=== PATIENT | male | born 1945 | race Caucasian/White ===

== ENCOUNTER 2016-05-04 09:58 | Outpatient (CLI) | payer MEDICARE, OTHER | END 2016-05-04 09:59 | disposition home or self-care (01) | DX: E11.9 Type 2 diabetes mellitus without complications (principal); I10 Essential (primary) hypertension; I25.10 Atherosclerotic heart disease of native coronary artery without angina pectoris ==

== ENCOUNTER 2016-08-04 08:46 | Outpatient (CLI) | payer MEDICARE, OTHER ==
[2016-08-04 13:25] LABS: HEMOGLOBIN A1C 0.94 g/dL
[2016-08-04 13:46] LABS: ALBUMIN/GLOBULIN RATIO 1.6 (1.0-2.2); BILIRUBIN,TOTAL 0.8 mg/dL (0.2-1.0); BUN - BLOOD UREA NITROGEN 38 mg/dL (6-20); CALCIUM 9.5 mg/dL (8.5-10.3); CARBON DIOXIDE - CO2 28 mmol/L (21-32); CHLORIDE 102 mmol/L (101-111); CHOL/HDL RATIO 3.6 (<5.0); CHOLESTEROL 107 mg/dL; CREATININE 1.3 mg/dL (0.6-1.2); GFR - MDRD 54 (>89); GLUCOSE 125 mg/dL (70-100); HDL CHOLESTEROL 30 mg/dL; POTASSIUM 4.7 mmol/L (3.5-5.0); SODIUM 140 mmol/L (135-145); TOTAL PROTEIN 7.1 g/dL (6.7-8.2); TRIGLYCERIDES 87 mg/dL; VLDL CHOLESTEROL 17 mg/dL
== END 2016-08-04 08:47 | disposition home or self-care (01) ==
LOC: LAB.WCP 08:46
PROVIDERS: ATTEND Family Medicine
DX: I10 Essential (primary) hypertension (principal)
CPT/HCPCS: 36415; 80053; 80061; 82043; 83036

== ENCOUNTER 2016-11-03 08:00 | Outpatient (CLI) | payer MEDICARE, OTHER ==
[2016-11-03 13:34] LABS: HEMOGLOBIN A1C 0.91 g/dL
[2016-11-03 13:41] LABS: ALBUMIN/GLOBULIN RATIO 1.6 (1.0-2.2); BILIRUBIN,TOTAL 0.3 mg/dL (0.2-1.0); BUN - BLOOD UREA NITROGEN 31 mg/dL (6-20); CALCIUM 9.1 mg/dL (8.5-10.3); CARBON DIOXIDE - CO2 27 mmol/L (21-32); CHLORIDE 108 mmol/L (101-111); CHOL/HDL RATIO 3.4 (<5.0); CHOLESTEROL 106 mg/dL; CREATININE 1.3 mg/dL (0.6-1.2); GFR - MDRD 54 (>89); GLUCOSE 106 mg/dL (70-100); HDL CHOLESTEROL 31 mg/dL; LDL/HDL RATIO 1.8 (<3.6); POTASSIUM 4.4 mmol/L (3.5-5.0); SODIUM 139 mmol/L (135-145); TRIGLYCERIDES 94 mg/dL; VLDL CHOLESTEROL 19 mg/dL
== END 2016-11-03 08:01 | disposition home or self-care (01) ==
LOC: LAB.WCP 08:00
PROVIDERS: ATTEND Family Medicine
DX: I10 Essential (primary) hypertension (principal); E11.9 Type 2 diabetes mellitus without complications; I25.10 Atherosclerotic heart disease of native coronary artery without angina pectoris; E78.5 Hyperlipidemia, unspecified; Z79.899 Other long term (current) drug therapy
CPT/HCPCS: 36415; 80053; 80061; 83036

== ENCOUNTER 2017-03-04 08:00 | Outpatient (CLI) | payer MEDICARE, OTHER ==
[2017-03-04 13:40] LABS: HB2 TOTAL 15.4 g/dL; HEMOGLOBIN A1C 0.86 g/dL; HEMOGLOBIN A1C % 7.3 % (4.6-6.2)
[2017-03-04 14:13] LABS: ALBUMIN 4.3 g/dL (3.2-5.5); ALBUMIN/GLOBULIN RATIO 1.6 (1.0-2.2); BILIRUBIN,TOTAL 0.4 mg/dL (0.2-1.0); CREATININE 1.1 mg/dL (0.6-1.2)
== END 2017-03-04 08:01 | disposition home or self-care (01) ==
LOC: LAB.WCP 08:00
PROVIDERS: ATTEND Family Medicine
DX: M54.5 Low back pain (principal); E11.9 Type 2 diabetes mellitus without complications; I25.10 Atherosclerotic heart disease of native coronary artery without angina pectoris
CPT/HCPCS: 36415; 80053; 83036

== ENCOUNTER 2017-04-08 07:45 | Day surgery (SDC) | payer MEDICARE, OTHER ==
[2017-04-08] MEDS ORDERED: LACTATED RINGERS 1,000 ML IV ONE (08:26)
[2017-04-08] MEDS ORDERED: fentaNYL 100 MCG/2 ML VIAL IVP ONE (09:26)
[2017-04-08] MEDS ORDERED: MIDAZOLAM 2 MG/2 ML VIAL IVP ONE (09:26)
[2017-04-08 11:00] VITALS: BP 132/78
== END 2017-04-08 07:46 | disposition home or self-care (01) ==
LOC: SDS 07:45
PROVIDERS: ATTEND Surgery
PROC: 0DBH8ZX Excision of Cecum, Via Natural or Artificial Opening Endoscopic, Diagnostic (ICD-10-PCS; 2017-04-08)
PROC: 0DBH8ZZ Excision of Cecum, Via Natural or Artificial Opening Endoscopic (ICD-10-PCS; 2017-04-08)
PROC: 0DBN8ZZ Excision of Sigmoid Colon, Via Natural or Artificial Opening Endoscopic (ICD-10-PCS; 2017-04-08)
PROC: 0DBP8ZZ Excision of Rectum, Via Natural or Artificial Opening Endoscopic (ICD-10-PCS; 2017-04-08)
PROC: 3E0H8GC Introduction of Other Therapeutic Substance into Lower GI, Via Natural or Artificial Opening Endoscopic (ICD-10-PCS; principal; 2017-04-08 09:00)
DX: Z12.11 Encounter for screening for malignant neoplasm of colon (principal); D12.7 Benign neoplasm of rectosigmoid junction; D12.0 Benign neoplasm of cecum; D12.5 Benign neoplasm of sigmoid colon; K62.1 Rectal polyp; K64.8 Other hemorrhoids; Z80.0 Family history of malignant neoplasm of digestive organs; F17.210 Nicotine dependence, cigarettes, uncomplicated; E11.9 Type 2 diabetes mellitus without complications; E78.5 Hyperlipidemia, unspecified; Z95.1 Presence of aortocoronary bypass graft
CPT/HCPCS: 45380; 45381; 45385; J7120

== ENCOUNTER 2017-08-26 08:01 | Outpatient (CLI) | payer MEDICARE, OTHER ==
[2017-08-26 13:19] LABS: CHOL/HDL RATIO 3.3 (<5.0); CHOLESTEROL 120 mg/dL; HDL CHOLESTEROL 36 mg/dL; LDL CHOLESTEROL,CALCULATED 67 mg/dL; LDL/HDL RATIO 1.9 (<3.6); VLDL CHOLESTEROL 17 mg/dL
[2017-08-26 13:22] LABS: HB2 TOTAL 14.5 g/dL; HEMOGLOBIN A1C 0.87 g/dL; HEMOGLOBIN A1C % 7.6 % (4.6-6.2)
== END 2017-08-26 08:02 ==
LOC: LAB.WCP 08:01
PROVIDERS: ATTEND Family Medicine
DX: D12.8 Benign neoplasm of rectum (principal); I10 Essential (primary) hypertension; E11.9 Type 2 diabetes mellitus without complications; I25.10 Atherosclerotic heart disease of native coronary artery without angina pectoris; Z72.0 Tobacco use
CPT/HCPCS: 36415; 80061; 82043; 83036; 83721

== ENCOUNTER 2018-02-07 08:13 | Outpatient (CLI) | payer MEDICARE, OTHER ==
[2018-02-07 13:17] LABS: ALBUMIN 4.2 g/dL (3.2-5.5); ALBUMIN/GLOBULIN RATIO 1.4 (1.0-2.2); ALKALINE PHOSPHATASE 94 IU/L (42-121); ALT ALANINE AMINOTRANSFERASE 22 IU/L (10-60); AST ASPARTATE AMINOTRANSFERASE 21 IU/L (10-42); BILIRUBIN,TOTAL 0.8 mg/dL (0.2-1.0); BUN - BLOOD UREA NITROGEN 37 mg/dL (6-20); CALCIUM 9.1 mg/dL (8.5-10.3); CARBON DIOXIDE - CO2 27 mmol/L (21-32); CHLORIDE 105 mmol/L (101-111); CHOL/HDL RATIO 3.6 (<5.0); CHOLESTEROL 109 mg/dL; CREATININE 1.1 mg/dL (0.6-1.2); GFR - MDRD 66 (>89); GLUCOSE 137 mg/dL (70-100); HDL CHOLESTEROL 30 mg/dL; LDL CHOLESTEROL,CALCULATED 58 mg/dL; LDL/HDL RATIO 1.9 (<3.6); SODIUM 139 mmol/L (135-145); TOTAL PROTEIN 7.1 g/dL (6.7-8.2); VLDL CHOLESTEROL 21 mg/dL
[2018-02-07 13:22] LABS: HB2 TOTAL 13.3 g/dL; HEMOGLOBIN A1C 0.81 g/dL; HEMOGLOBIN A1C % 7.7 % (4.6-6.2)
== END 2018-02-07 23:59 | disposition home or self-care (01) ==
LOC: LAB.WCP 08:13
PROVIDERS: ATTEND Family Medicine
DX: K63.5 Polyp of colon (principal); E11.9 Type 2 diabetes mellitus without complications; F17.210 Nicotine dependence, cigarettes, uncomplicated
CPT/HCPCS: 36415; 80053; 80061; 83036; 83721; 84443

== ENCOUNTER 2018-08-17 09:28 | Outpatient (CLI) | payer MEDICARE, OTHER ==
[2018-08-17 12:52] LABS: BASOPHILS # (AUTO) 0.1 10^3/uL (0.0-0.1); BASOPHILS % (AUTO) 0.8 %; EOSINOPHILS # (AUTO) 0.4 10^3/uL (0.0-0.7); EOSINOPHILS % (AUTO) 5.3 %; HGB - HEMOGLOBIN 14.5 g/dL (14.0-18.0); LYMPHOCYTES # (AUTO) 2.2 10^3/uL (1.5-3.5); LYMPHOCYTES % (AUTO) 29.7 %; MEAN CORPUSCULAR HGB CONC 32.1 g/dL (32.0-36.0); MEAN CORPUSCULAR VOLUME 93.6 fL (80.0-94.0); MEAN PLATELET VOLUME 10.2 fL (7.4-11.4); MONOCYTES # (AUTO) 0.8 10^3/uL (0.0-1.0); MONOCYTES % (AUTO) 10.8 %; NEUTROPHILS # (AUTO) 3.9 10^3/uL (1.5-6.6); PLT - PLATELET COUNT 268 10^3/uL (130-450); RED BLOOD COUNT 4.83 10^6/uL (4.70-6.10); RED CELL DISTRIBUTION WIDTH 12.7 % (12.0-15.0); WHITE BLOOD COUNT 7.4 x10^3/uL (4.8-10.8)
[2018-08-17 13:32] LABS: ALBUMIN 4.3 g/dL (3.2-5.5); ALBUMIN/GLOBULIN RATIO 1.4 (1.0-2.2); ALKALINE PHOSPHATASE 76 IU/L (42-121); ALT ALANINE AMINOTRANSFERASE 24 IU/L (10-60); AST ASPARTATE AMINOTRANSFERASE 21 IU/L (10-42); BILIRUBIN,TOTAL 0.8 mg/dL (0.2-1.0); BUN - BLOOD UREA NITROGEN 30 mg/dL (6-20); CALCIUM 9.3 mg/dL (8.5-10.3); CARBON DIOXIDE - CO2 28 mmol/L (21-32); CHLORIDE 101 mmol/L (101-111); CHOL/HDL RATIO 3.5 (<5.0); CHOLESTEROL 104 mg/dL; CREATININE 1.1 mg/dL (0.6-1.2); GFR - MDRD 65 (>89); GLUCOSE 134 mg/dL (70-100); HDL CHOLESTEROL 30 mg/dL; LDL CHOLESTEROL,CALCULATED 60 mg/dL; SODIUM 139 mmol/L (135-145); TOTAL PROTEIN 7.4 g/dL (6.7-8.2); VLDL CHOLESTEROL 14 mg/dL
== END 2018-08-17 23:59 | disposition home or self-care (01) ==
LOC: LAB.WCP 09:28
PROVIDERS: ATTEND Family Medicine
DX: I10 Essential (primary) hypertension (principal); E11.9 Type 2 diabetes mellitus without complications; I25.10 Atherosclerotic heart disease of native coronary artery without angina pectoris
CPT/HCPCS: 36415; 80053; 80061; 83721; 84443; 85025

== ENCOUNTER 2018-08-26 08:50 | Outpatient (CLI) | payer MEDICARE, OTHER ==
[2018-08-26 12:47] LABS: HB2 TOTAL 15.4 g/dL; HEMOGLOBIN A1C 0.95 g/dL; HEMOGLOBIN A1C % 7.8 % (4.6-6.2)
== END 2018-08-26 23:59 | disposition home or self-care (01) ==
LOC: LAB.WCP 08:50
PROVIDERS: ATTEND Family Medicine
DX: E11.9 Type 2 diabetes mellitus without complications (principal)
CPT/HCPCS: 36415; 83036

== ENCOUNTER 2019-04-18 07:47 | Outpatient (CLI) | payer MEDICARE, OTHER ==
[2019-04-18 12:45] LABS: ALBUMIN/GLOBULIN RATIO 1.4 (1.0-2.2); BILIRUBIN,TOTAL 0.6 mg/dL (0.2-1.0); CALCIUM 8.9 mg/dL (8.5-10.3); CREATININE 1.2 mg/dL (0.6-1.2); TOTAL PROTEIN 6.9 g/dL (6.7-8.2)
[2019-04-18 13:13] LABS: HB2 TOTAL 15.1 g/dL; HEMOGLOBIN A1C 0.88 g/dL; HEMOGLOBIN A1C % 7.5 % (4.6-6.2)
== END 2019-04-18 23:59 | disposition home or self-care (01) ==
LOC: LAB.WCP 07:47
PROVIDERS: ATTEND Family Medicine
DX: I10 Essential (primary) hypertension (principal); E11.9 Type 2 diabetes mellitus without complications
CPT/HCPCS: 36415; 80053; 83036

== ENCOUNTER 2019-04-26 09:04 | Outpatient (CLI) | payer MEDICARE, OTHER ==
[~2019-04-26 09:04] MED LIST: ALBUTEROL NEB 2.5 MG/3 ML INH ONE
== END 2019-04-26 09:05 | disposition home or self-care (01) ==
LOC: RT 09:04
PROVIDERS: ATTEND Family Medicine
DX: J44.9 Chronic obstructive pulmonary disease, unspecified (principal)
CPT/HCPCS: 94060; 94729

== ENCOUNTER 2020-04-23 08:00 | Outpatient (CLI) | payer MEDICARE, OTHER ==
[2020-04-23 12:02] LABS: BASOPHILS # (AUTO) 0.1 10^3/uL (0.0-0.1); EOSINOPHILS # (AUTO) 0.5 10^3/uL (0.0-0.7); EOSINOPHILS % (AUTO) 6.3 %; HCT - HEMATOCRIT 42.5 % (42.0-52.0); LYMPHOCYTES # (AUTO) 2.2 10^3/uL (1.5-3.5); MEAN CORPUSCULAR HEMOGLOBIN 31.3 pg (27.0-31.0); MEAN CORPUSCULAR HGB CONC 32.9 g/dL (32.0-36.0); MEAN CORPUSCULAR VOLUME 95.1 fL (80.0-94.0); MEAN PLATELET VOLUME 10.4 fL (7.4-11.4); MONOCYTES % (AUTO) 12.3 %; NEUTROPHILS # (AUTO) 4.4 10^3/uL (1.5-6.6); PLT - PLATELET COUNT 270 10^3/uL (130-450); RED BLOOD COUNT 4.47 10^6/uL (4.70-6.10); RED CELL DISTRIBUTION WIDTH 12.4 % (12.0-15.0); WHITE BLOOD COUNT 8.2 x10^3/uL (4.8-10.8)
[2020-04-23 12:17] LABS: ESTIMATED AVERAGE GLUCOSE 169 mg/dL (70-100); HEMOGLOBIN A1c% 7.5 % (4.27-6.07)
[2020-04-23 12:18] LABS: MICROALBUM/CREATININE RATIO,UR 504.8 ug/mg (<30.0); MICROALBUMIN,URINE 41.9 mg/dL (0-300.0)
[2020-04-23 12:43] LABS: ALBUMIN 4.1 g/dL (3.2-5.5); ALBUMIN/GLOBULIN RATIO 1.3 (1.0-2.2); ALKALINE PHOSPHATASE 80 IU/L (42-121); ALT ALANINE AMINOTRANSFERASE 25 IU/L (10-60); AST ASPARTATE AMINOTRANSFERASE 22 IU/L (10-42); BILIRUBIN,TOTAL 0.7 mg/dL (0.2-1.0); BUN - BLOOD UREA NITROGEN 26 mg/dL (6-20); CALCIUM 9.4 mg/dL (8.5-10.3); CARBON DIOXIDE - CO2 27 mmol/L (21-32); CHLORIDE 104 mmol/L (101-111); CHOL/HDL RATIO 3.8 (<5.0); CHOLESTEROL 120 mg/dL; CREATININE 1.2 mg/dL (0.6-1.2); GFR - MDRD 59 (>89); GLUCOSE 86 mg/dL (70-100); HDL CHOLESTEROL 32 mg/dL; LDL CHOLESTEROL,CALCULATED 72 mg/dL; LDL/HDL RATIO 2.3 (<3.6); POTASSIUM 4.3 mmol/L (3.5-5.0); SODIUM 141 mmol/L (135-145); TOTAL PROTEIN 7.2 g/dL (6.7-8.2); TRIGLYCERIDES 79 mg/dL; VLDL CHOLESTEROL 16 mg/dL
[2020-04-23 12:49] LABS: THYROID STIMULATING HORMONE 4.83 uIU/mL (0.34-5.60)
== END 2020-04-23 23:59 | disposition home or self-care (01) ==
LOC: LAB.WCP 08:00
PROVIDERS: ATTEND Family Medicine
DX: J44.9 Chronic obstructive pulmonary disease, unspecified (principal); E11.9 Type 2 diabetes mellitus without complications; E78.5 Hyperlipidemia, unspecified; I25.10 Atherosclerotic heart disease of native coronary artery without angina pectoris; I10 Essential (primary) hypertension
CPT/HCPCS: 36415; 80053; 80061; 82043; 82570; 83036; 83721; 84443; 85025

== ENCOUNTER 2020-06-06 08:52 | Outpatient (CLI) | payer MEDICARE, OTHER | END 2020-06-06 08:53 | disposition home or self-care (01) | LOC: DI 08:52 | PROVIDERS: ATTEND Internal Medicine | DX: I51.7 Cardiomegaly (principal); I77.810 Thoracic aortic ectasia | CPT/HCPCS: 93306 ==

== ENCOUNTER 2020-09-19 08:45 | Emergency (ER) | payer MEDICARE, OTHER ==
--- NOTE | 2020-09-19 09:32 | XRAY Report ---
PROCEDURE: Wrist 3 View RT INDICATIONS: pain/swelling TECHNIQUE: 3 views of the wrist were acquired. COMPARISON: None FINDINGS: Bones: No fractures or dislocations. No suspicious bony lesions. 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 Soft tissues: No suspicious soft tissue calcifications. IMPRESSION: No fracture. No acute osseous lesion. If there persistent symptoms or continued clinical concern for pathology, then repeat plain film radiographs (7-10 days) or advanced imaging (CT, MR, bone scan) stephanie uld be considered for further evaluation. Reviewed by: Constance James MD, PhD on 09/19/2020 9:31 AM PDT Approved by: Constance James MD, PhD on 09/19/2020 9:31 AM PDT Station ID: [id number]
--- NOTE | 2020-09-19 09:51 | ED Physician Documentation ---
PD HPI UPPER EXT INJURY - Stated complaint Stated Complaint: R WRIST SWELLING/PX - Chief complaint Chief Complaint: Ext Problem - History obtained from History obtained from: Patient - Additonal information Additional information: Patient comes emergency department chief complaint of right wrist and hand swelling after working on a strenuous project at home for a number of hours 2 days ago. 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 He states he started to notice some soreness over the flexor aspect of his wrist and over the last couple of days, he has had increased pain with some swelling in his hands. Patient states the most helpful thing is to prop his hand up and elevate it. He tried taking couple Tylenol last night and was able to get some sleep. He denies history of carpal tunnel. No previous fracture or other injury to the wrist. He denies hearing any cracking, popping, or snapping during the work he was doing. No oth er complaints at this time. Patient has a history of psoriasis but this has not affected his right hand as far as he knows. He is right-hand dominant. Review of Systems Ten Systems: 10 systems reviewed and negative Constitutional: reports: Reviewed and negative Eyes: reports: Reviewed and negative Ears: reports: Reviewed and negative Nose: reports: Reviewed and negative Throat: reports: Reviewed and negative Cardiac: reports: Reviewed and negative Respiratory: reports: Reviewed and negative GI: reports: Reviewed and negative : reports: Reviewed and negative Skin: reports: Reviewed and negative Musculoskeletal: reports: Joint pain, Joint swelling Neurologic: reports: Reviewed and negative Psychiatric: reports: Reviewed and negative Endocrine: reports: Reviewed and negative Immunocompromised: reports: Reviewed and negative PD PAST MEDICAL HISTORY - Past Medical History Cardiovascular: Hypertension, High cholesterol, Coronary artery disease Endocrine/Autoimmune: Type 2 diabetes - Past Surgical History General: Colonoscopy Cardiovascular: CABG - Present Medications Home Medications: Ambulatory Orders Medication Instructions Recorded Confirmed Ascorbic Acid [Vitamin C] 500 mg PO DAILY 01/24/16 01/24/16 Aspirin [Aspirin EC] 81 mg PO DAILY 01/24/16 01/24/16 Atorvastatin Calcium [Lipitor] 80 mg PO QPM 01/24/16 01/24/16 Cholecalciferol (Vitamin D3) 400 unit PO DAILY 01/24/16 01/24/16 [Vitamin D3] Insulin Glargine,Hum.rec.anlog 20 unit SQ QPM 01/24/16 01/24/16 [Lantus Solostar] Metformin HCl 1,000 mg PO BIDWM 01/24/16 01/24/16 Metoprolol Tartrate 25 mg PO BID 01/24/16 01/24/16 Multivitamin [Multivitamins] 1 each PO DAILY 01/24/16 01/24/16 buPROPion HCL [Bupropion HCl Sr] 150 mg PO DAILY 01/24/16 01/24/16 lisinopriL [Lisinopril] 5 mg PO DAILY 01/24/16 01/24/16 predniSONE [Deltasone] 60 mg PO DAILY 5 Days #15 tablet 09/19/20 - Allergies Allergies/Adverse Reactions: Allergies Allergy/AdvReac Type Severity Reaction Status Date / Time No Known Drug Allergies Allergy Verified 09/19/20 09:12 - Social History Smoking Status: Current every day smoker PD ED PE NORMAL - Vitals Vital signs reviewed: Yes - General General: Alert and oriented X 3, No acute distress - HEENT HEENT: Atraumatic, PERRL, EOMI, Moist mucous membranes - Neck Neck: Supple, no meningeal sign - Cardiac Cardiac: Strong equal pulses - Respiratory Respiratory: No respiratory distress - Derm Derm: Normal color, Warm and dry, No rash - Extremities Extremities: No deformity, Other (Moderate edema right hand. Limited range of motion of finger secondary to swelling. Tenderness over flexor aspect right wrist. No bony deformity or point tenderness. Full range of motion right elbow.) - Neuro Neuro: Alert and oriented X 3 - Psych Psych: Normal mood, Normal affect Results - Vitals Vitals: Vital Signs - 24 hr 09/19/20 09:09 Temperature 36.5 C Oxygen O2 Source Room air - Rads (name of study) Wrist x-ray Radiology: Final report received, EMP read indepedently, See rad report (neg) PD MEDICAL DECISION MAKING - ED course Complexity details: reviewed results, re-evaluated patient, considered differential, d/w patient ED course: I discussed with the patient that I do not find any evidence of a bony injury and that most likely, he is sustained an overuse injury to his tendon sheath. We have discussed the importance and effectiveness of elevation and icing. We have also discussed using anti-inflammatories and prednisone to help with the symptoms. Patient has been given a dose of prednisone here. Given the swelling currently, I do not feel it is likely that splinting will help at this time. We have discussed the need for follow-up. Departure - Departure Disposition: 01 Home, Self Care Clinical Impression: Wrist pain, acute Qualifiers: Laterality: right Qualified Code(s): M25.531 - Pain in right wrist Condition: Stable Instructions: Carpal Tunnel Syndrome Prescriptions: predniSONE [Deltasone] 60 mg PO DAILY 5 Days #15 tablet Comments: Your x-ray looks good. The pain and swelling you are having appears to be a consequence of overuse injury, which is probably the result of the work you did at your house couple days ago. For the most part, this will have to get better on its own, though anti-inflammatories and prednisone should be helpful with this. Please take the prednisone once daily as directed until the swelling goes down or until you have completed the course. You may also take ibuprofen 600 mg every 6 hours as needed for the pain and swelling. Ice and elevation will be the most helpful. Please elevate your hand whenever you are able to help drain the swelling out and improve your comfort level. You may follow-up with your primary care physician as needed.
[2020-09-19] MEDS ORDERED: predniSONE 20 MG TABLET PO STA (09:52)
== END 2020-09-19 10:16 | disposition home or self-care (01) ==
LOC: ED 08:45
DX: M25.531 Pain in right wrist (principal); R22.31 Localized swelling, mass and lump, right upper limb; F17.200 Nicotine dependence, unspecified, uncomplicated
CPT/HCPCS: 73110; 99283; 99284; J7512

== ENCOUNTER 2020-10-01 08:00 | Outpatient (CLI) | payer MEDICARE, OTHER ==
[2020-10-01 12:41] LABS: CREATININE,URINE 83.5 mg/dL; MICROALBUM/CREATININE RATIO,UR 316.2 ug/mg (<30.0); MICROALBUMIN,URINE 26.4 mg/dL (0-300.0)
[2020-10-01 12:47] LABS: CALCIUM 9.7 mg/dL (8.5-10.3); CREATININE 1.3 mg/dL (0.6-1.2); POTASSIUM 5.4 mmol/L (3.5-5.0)
[2020-10-01 13:06] LABS: ESTIMATED AVERAGE GLUCOSE 163 mg/dL (70-100); HEMOGLOBIN A1c% 7.3 % (4.27-6.07)
== END 2020-10-01 23:59 | disposition home or self-care (01) ==
LOC: LAB.WCP 08:00
PROVIDERS: ATTEND Internal Medicine
DX: E11.59 Type 2 diabetes mellitus with other circulatory complications (principal)
CPT/HCPCS: 36415; 80048; 82043; 82570; 83036

== ENCOUNTER 2021-01-29 08:00 | Outpatient (CLI) | payer MEDICARE, OTHER ==
[2021-01-29 13:21] LABS: ESTIMATED AVERAGE GLUCOSE 160 mg/dL (70-100); HEMOGLOBIN A1c% 7.2 % (4.27-6.07)
[2021-01-29 13:25] LABS: CREATININE,URINE 40.2 mg/dL; MICROALBUMIN,URINE 12.3 mg/dL (0-300.0)
[2021-01-29 14:02] LABS: CALCIUM 9.3 mg/dL (8.5-10.3); CREATININE 1.2 mg/dL (0.6-1.2); POTASSIUM 4.5 mmol/L (3.5-5.0)
== END 2021-01-29 23:59 ==
LOC: LAB.WCP 08:00
PROVIDERS: ATTEND Internal Medicine
DX: E11.59 Type 2 diabetes mellitus with other circulatory complications (principal)
CPT/HCPCS: 36415; 80048; 82043; 82570; 83036

== ENCOUNTER 2021-03-25 07:29 | Day surgery (SDC) | payer MEDICARE, OTHER ==
[2021-03-25] MEDS ORDERED: LACTATED RINGERS 1,000 ML IV ONE ×2 (07:32→09:27)
--- NOTE | 2021-03-25 08:40 | ANESTHESIA ---
Pre-Anesthesia VS, & Labs - Diagnosis hx of polyps - Procedure colonoscopy Vital Signs: Temp Pulse Resp BP Pulse Ox 35.9 C L 72 18 129/69 98 03/25/21 07:36 03/25/21 07:36 03/25/21 07:36 03/25/21 07:36 03/25/21 07:36 Height: 5 ft 6 in Weight (kg): 84 kg Body Mass Index: 29.9 BMI Classification: Overweight - NPO >8 hours - Lab Results Current Lab Results: Laboratory Tests 03/25/21 07:51: POC Whole Bld Glucose 135 H Home Medications and Allergies Home Medications: Ambulatory Orders Albuterol Sulf [Ventolin Hfa Inhaler] 1 - 2 puffs INH Q4HR PRN 03/24/21 Alogliptin Benzoate [Alogliptin] 25 mg PO DAILY 03/24/21 Clobetasol 0.05% Oint [Temovate 0.05% Oint] 1 applic TOP TID PRN 03/24/21 Triamcinolone Acetonide 0.1% [Triamcinolone Acetonide] 1 applic TP DAILY 03/24/21 hydroCHLOROthiazide [Hydrodiuril] 12.5 mg PO DAILY 03/24/21 Ascorbic Acid [Vitamin C] 500 mg PO DAILY 01/24/16 Aspirin [Aspirin EC] 81 mg PO DAILY 01/24/16 Atorvastatin Calcium [Lipitor] 80 mg PO QPM 01/24/16 Cholecalciferol (Vitamin D3) [Vitamin D3] 2,000 unit PO DAILY 01/24/16 Insulin Glargine,Hum.rec.anlog [Lantus Solostar] 25 unit SQ QPM 01/24/16 Metformin HCl 1,000 mg PO BIDWM 01/24/16 Metoprolol Tartrate 25 mg PO BID 01/24/16 Multivitamin [Multivitamins] 1 each PO DAILY 01/24/16 lisinopriL [Lisinopril] 10 mg PO DAILY 01/24/16 Albuterol Sulf [Ventolin Hfa Inhaler] 1 - 2 puffs INH Q4HR PRN 03/24/21 Alogliptin Benzoate [Alogliptin] 25 mg PO DAILY 03/24/21 Clobetasol 0.05% Oint [Temovate 0.05% Oint] 1 applic TOP TID PRN 03/24/21 Triamcinolone Acetonide 0.1% [Triamcinolone Acetonide] 1 applic TP DAILY 03/24/21 hydroCHLOROthiazide [Hydrodiuril] 12.5 mg PO DAILY 03/24/21 Allergies/Adverse Reactions: Allergies Allergy/AdvReac Type Severity Reaction Status Date / Time No Known Drug Allergies Allergy Verified 09/19/20 09:12 Anes History & Medical History - Anesthetic History Anesthesia Complications: reports: No previous complications Family history of Anesthesia Complications: Denies Family history of Malignant Hyperthermia: Denies - Medical History Cardiovascular: reports: Hypertension, High cholesterol, Coronary artery disease Pulmonary: reports: COPD Gastrointestinal: reports: Colon polyps Urinary: reports: Frequency Musculoskeletal: reports: None Endocrine/Autoimmune: reports: Type 2 diabetes Skin: reports: Psoriasis Smoking Status: Current every day smoker - Surgical History General: reports: Colonoscopy Cardiothoracic: reports: CABG Exam General: Alert, Oriented x3, Cooperative Dental: Partials Upper Mouth Openin Fingerbreadth Neck Mobility: Normal Mallampati classification: II Thyromental Distance: 4-6 cm Respiratory: Lungs clear Cardiovascular: Regular rate Plan Anesthesia Type: Total IV Consent for Procedure(s) Verified and Reviewed: Yes Code Status: Attempt Resuscitation ASA classification: 3-Severe systemic disease Is this case an emergency?: No
[2021-03-25] MEDS ORDERED: PROPOFOL 500 MG/50 ML 500 MG/50 ML VIAL ONE (08:51)
[2021-03-25 09:58] VITALS: BP 106/54
--- NOTE | 2021-03-25 10:48 | ANESTHESIA POST OP EVALUATION ---
Anesthesia Post Eval - Post Anesthesia Eval Vitals: Last Vital Signs Temp 36.8 C 03/25/21 09:58 Pulse 72 03/25/21 09:58 Resp 16 03/25/21 09:58 BP 106/54 L 03/25/21 09:58 Pulse Ox 100 03/25/21 09:58 CV Function Including HR & BP: Stable Pain Control: Satisfactory Nausea & Vomiting: Negative Mental Status: Baseline Respiratory Status: Airway Patent Hydration Status: Satisfactory Anesthesia Complications: None
== END 2021-03-25 07:30 | disposition home or self-care (01) ==
LOC: SDS 07:29
PROVIDERS: ATTEND Surgery
PROC: 0DBL8ZZ Excision of Transverse Colon, Via Natural or Artificial Opening Endoscopic (ICD-10-PCS; 2021-03-25)
PROC: 0DBN8ZZ Excision of Sigmoid Colon, Via Natural or Artificial Opening Endoscopic (ICD-10-PCS; 2021-03-25)
PROC: 0DBP8ZZ Excision of Rectum, Via Natural or Artificial Opening Endoscopic (ICD-10-PCS; 2021-03-25)
PROC: 0DBM8ZZ Excision of Descending Colon, Via Natural or Artificial Opening Endoscopic (ICD-10-PCS; 2021-03-25)
PROC: 0DBH8ZZ Excision of Cecum, Via Natural or Artificial Opening Endoscopic (ICD-10-PCS; 2021-03-25)
PROC: 0DBK8ZZ Excision of Ascending Colon, Via Natural or Artificial Opening Endoscopic (ICD-10-PCS; principal; 2021-03-25 08:30)
DX: Z12.11 Encounter for screening for malignant neoplasm of colon (principal); D12.3 Benign neoplasm of transverse colon; D12.2 Benign neoplasm of ascending colon; D12.4 Benign neoplasm of descending colon; K62.1 Rectal polyp; K63.5 Polyp of colon; K64.8 Other hemorrhoids; K64.4 Residual hemorrhoidal skin tags; J44.9 Chronic obstructive pulmonary disease, unspecified; I25.10 Atherosclerotic heart disease of native coronary artery without angina pectoris; E11.22 Type 2 diabetes mellitus with diabetic chronic kidney disease; I12.9 Hypertensive chronic kidney disease with stage 1 through stage 4 chronic kidney disease, or unspecified chronic kidney disease; N18.31 Chronic kidney disease, stage 3a; Z79.4 Long term (current) use of insulin; Z79.84 Long term (current) use of oral hypoglycemic drugs; F17.200 Nicotine dependence, unspecified, uncomplicated
CPT/HCPCS: 45380; J7120

== ENCOUNTER 2021-05-30 09:04 | Outpatient (CLI) | payer MEDICARE, OTHER ==
[2021-05-30 12:10] LABS: CREATININE,URINE 58.3 mg/dL; MICROALBUM/CREATININE RATIO,UR 279.6 ug/mg (<30.0); MICROALBUMIN,URINE 16.3 mg/dL (0-300.0)
[2021-05-30 12:12] LABS: BASOPHILS # (AUTO) 0.1 10^3/uL (0.0-0.1); BASOPHILS % (AUTO) 0.8 %; EOSINOPHILS # (AUTO) 0.5 10^3/uL (0.0-0.7); HCT - HEMATOCRIT 39.8 % (42.0-52.0); HGB - HEMOGLOBIN 13.3 g/dL (14.0-18.0); LYMPHOCYTES # (AUTO) 2.1 10^3/uL (1.5-3.5); LYMPHOCYTES % (AUTO) 24.9 %; MEAN CORPUSCULAR HEMOGLOBIN 31.1 pg (27.0-31.0); MEAN CORPUSCULAR HGB CONC 33.4 g/dL (32.0-36.0); MEAN PLATELET VOLUME 10.6 fL (7.4-11.4); MONOCYTES # (AUTO) 0.8 10^3/uL (0.0-1.0); MONOCYTES % (AUTO) 9.6 %; NEUTROPHILS # (AUTO) 4.9 10^3/uL (1.5-6.6); NEUTROPHILS % (AUTO) 58.3 %; PLT - PLATELET COUNT 287 10^3/uL (130-450); RED BLOOD COUNT 4.28 10^6/uL (4.70-6.10); RED CELL DISTRIBUTION WIDTH 12.4 % (12.0-15.0); WHITE BLOOD COUNT 8.5 x10^3/uL (4.8-10.8)
[2021-05-30 12:16] LABS: ESTIMATED AVERAGE GLUCOSE 166 mg/dL (70-100); HEMOGLOBIN A1c% 7.4 % (4.27-6.07)
[2021-05-30 12:28] LABS: ALBUMIN 4.2 g/dL (3.2-5.5); ALBUMIN/GLOBULIN RATIO 1.4 (1.0-2.2); ALKALINE PHOSPHATASE 74 IU/L (42-121); ALT ALANINE AMINOTRANSFERASE 16 IU/L (10-60); AST ASPARTATE AMINOTRANSFERASE 23 IU/L (10-42); BILIRUBIN,TOTAL 0.8 mg/dL (0.2-1.0); BUN - BLOOD UREA NITROGEN 40 mg/dL (6-20); CALCIUM 9.2 mg/dL (8.5-10.3); CARBON DIOXIDE - CO2 29 mmol/L (21-32); CHLORIDE 103 mmol/L (101-111); CHOL/HDL RATIO 3.5 (<5.0); CHOLESTEROL 104 mg/dL; CREATININE 1.5 mg/dL (0.6-1.2); GFR - MDRD 46 (>89); GLUCOSE 112 mg/dL (70-100); HDL CHOLESTEROL 30 mg/dL; LDL CHOLESTEROL,CALCULATED 60 mg/dL; POTASSIUM 4.6 mmol/L (3.5-5.0); SODIUM 141 mmol/L (135-145); TOTAL PROTEIN 7.3 g/dL (6.7-8.2); TRIGLYCERIDES 71 mg/dL; VLDL CHOLESTEROL 14 mg/dL
== END 2021-05-30 09:05 | disposition home or self-care (01) ==
LOC: LAB.N 09:04
PROVIDERS: ATTEND Internal Medicine
DX: I10 Essential (primary) hypertension (principal); E78.5 Hyperlipidemia, unspecified; E11.59 Type 2 diabetes mellitus with other circulatory complications
CPT/HCPCS: 36415; 80053; 80061; 82043; 82570; 83036; 83721; 85025

== ENCOUNTER 2022-10-14 10:27 | Outpatient (CLI) | payer MEDICARE, OTHER ==
[2022-10-14 12:33] LABS: BASOPHILS # (AUTO) 0.1 10^3/uL (0.0-0.1); BASOPHILS % (AUTO) 0.8 %; EOSINOPHILS # (AUTO) 0.5 10^3/uL (0.0-0.7); EOSINOPHILS % (AUTO) 5.6 %; HCT - HEMATOCRIT 40.7 % (42.0-52.0); HGB - HEMOGLOBIN 13.4 g/dL (14.0-18.0); LYMPHOCYTES # (AUTO) 2.1 10^3/uL (1.5-3.5); LYMPHOCYTES % (AUTO) 23.1 %; MEAN CORPUSCULAR HGB CONC 32.9 g/dL (32.0-36.0); MEAN CORPUSCULAR VOLUME 94.2 fL (80.0-94.0); MEAN PLATELET VOLUME 10.4 fL (7.4-11.4); MONOCYTES # (AUTO) 1.1 10^3/uL (0.0-1.0); NEUTROPHILS # (AUTO) 5.3 10^3/uL (1.5-6.6); NEUTROPHILS % (AUTO) 58.3 %; PLT - PLATELET COUNT 252 10^3/uL (130-450); RED BLOOD COUNT 4.32 10^6/uL (4.70-6.10); RED CELL DISTRIBUTION WIDTH 12.4 % (12.0-15.0); WHITE BLOOD COUNT 9.1 x10^3/uL (4.8-10.8)
[2022-10-14 13:07] LABS: ALBUMIN 4.2 g/dL (3.2-5.5); ALBUMIN/GLOBULIN RATIO 1.6 (1.0-2.2); ALKALINE PHOSPHATASE 74 IU/L (42-121); ALT ALANINE AMINOTRANSFERASE 13 IU/L (10-60); AST ASPARTATE AMINOTRANSFERASE 17 IU/L (10-42); BILIRUBIN,TOTAL 0.4 mg/dL (0.2-1.0); BUN - BLOOD UREA NITROGEN 42 mg/dL (6-20); CALCIUM 9.8 mg/dL (8.5-10.3); CARBON DIOXIDE - CO2 30 mmol/L (21-32); CHLORIDE 105 mmol/L (101-111); CHOLESTEROL 90 mg/dL; CREATININE 1.7 mg/dL (0.6-1.3); GFR - MDRD 39 (>89); GLUCOSE 95 mg/dL (74-104); HDL CHOLESTEROL 30 mg/dL; LDL CHOLESTEROL,CALCULATED 46 mg/dL; LDL/HDL RATIO 1.5 (<3.6); POTASSIUM 4.6 mmol/L (3.5-4.5); SODIUM 139 mmol/L (135-145); TOTAL PROTEIN 6.8 g/dL (6.4-8.9); TRIGLYCERIDES 71 mg/dL (48-352); VLDL CHOLESTEROL 14 mg/dL
[2022-10-14 13:37] LABS: ESTIMATED AVERAGE GLUCOSE 166 mg/dL (70-100); HEMOGLOBIN A1c% 7.4 % (4.27-6.07)
== END 2022-10-14 10:28 | disposition home or self-care (01) ==
LOC: LAB.N 10:27
PROVIDERS: ATTEND Internal Medicine
DX: E78.5 Hyperlipidemia, unspecified (principal); L40.9 Psoriasis, unspecified; E11.59 Type 2 diabetes mellitus with other circulatory complications
CPT/HCPCS: 36415; 80053; 80061; 83036; 83721; 85025

== ENCOUNTER 2023-03-30 09:31 | Outpatient (CLI) | payer MEDICARE, OTHER ==
[2023-03-30 10:00] LABS: CALCIUM 9.7 mg/dL (8.5-10.3); CREATININE 1.6 mg/dL (0.6-1.3); POTASSIUM 4.6 mmol/L (3.5-4.5)
[2023-03-30 10:41] LABS: CREATININE,URINE 79.3 mg/dL; MICROALBUM/CREATININE RATIO,UR 428.8 ug/mg (<30.0)
[2023-03-30 22:29] LABS: ESTIMATED AVERAGE GLUCOSE 160 mg/dL (70-100); HEMOGLOBIN A1c% 7.2 % (4.27-6.07)
== END 2023-03-30 09:32 | disposition home or self-care (01) ==
LOC: LAB 09:31
PROVIDERS: ATTEND Internal Medicine
DX: I10 Essential (primary) hypertension (principal); E11.59 Type 2 diabetes mellitus with other circulatory complications
CPT/HCPCS: 36415; 80048; 82043; 82570; 83036

== ENCOUNTER 2023-04-08 06:09 | Day surgery (SDC) | payer MEDICARE, OTHER ==
[2023-04-08] MEDS: LACTATED RINGERS 1,000 ML IV ONE ×2 (06:23→06:51)
[2023-04-08] MEDS ORDERED: MIDAZOLAM 2 MG/2 ML VIAL ONE (06:52)
[2023-04-08] MEDS ORDERED: fentaNYL 100 MCG/2 ML VIAL ONE (06:53)
[2023-04-08] MEDS: PROPARACAINE 0.5% OPHTH DROPS 15 ML ONE (06:55)
[2023-04-08] MEDS: KETOROLAC 0.45% OPHTH DROPS ONE (06:55)
[2023-04-08] MEDS: PHENYLEPHRINE 2.5% OPHTH 2 ML DROPS ONE (06:55)
[2023-04-08] MEDS ORDERED: BRIMONIDINE 0.2% OPHTH DROPS 5 ML ONE (06:59)
[2023-04-08] MEDS ORDERED: TIMOLOL 0.5% OPHTH DROPS ONE (06:59)
[2023-04-08] MEDS ORDERED: EPINEPHrine 1 MG/ML AMP ONE (06:59)
[2023-04-08] MEDS ORDERED: TRIAMCIN/MOXIFLOX OPHTHALMIC 0.6 ML VIAL IO ONE (06:59)
[2023-04-08] MEDS ORDERED: BSS/LIDOCAINE/EPINEPHRINE 1 ML VIAL ONE (07:00)
--- NOTE | 2023-04-08 07:20 | ANESTHESIA ---
Pre-Anesthesia VS, & Labs - Diagnosis left senile combined cataract - Procedure cataract extraction with iol Vital Signs: Temp Pulse Resp BP Pulse Ox O2 Flow Rate 36.7 C 66 18 126/75 99 04/08/23 06:57 04/08/23 06:57 04/08/23 06:57 04/08/23 06:57 04/08/23 06:57 Height: 5 ft 6 in Weight (kg): 79.83 kg Body Mass Index: 28.4 BMI Classification: Overweight - NPO >8 hours - Lab Results Current Lab Results: Laboratory Tests 04/08/23 07:02: POC Whole Bld Glucose 110 H Home Medications and Allergies Home Medications: Ambulatory Orders Varenicline Tartrate 1 mg PO BID 04/08/23 Ascorbic Acid [Vitamin C] 500 mg PO DAILY 01/24/16 Aspirin [Aspirin EC] 81 mg PO DAILY 01/24/16 Atorvastatin Calcium [Lipitor] 80 mg PO QPM 01/24/16 Cholecalciferol (Vitamin D3) [Vitamin D3] 2,000 unit PO DAILY 01/24/16 Insulin Glargine,Hum.rec.anlog [Lantus Solostar] 25 unit SQ QPM 01/24/16 Metformin HCl 1,000 mg PO DAILY 01/24/16 Metoprolol Tartrate 25 mg PO BID 01/24/16 Multivitamin [Multivitamins] 1 each PO DAILY 01/24/16 lisinopriL [Lisinopril] 10 mg PO DAILY 01/24/16 Alogliptin Benzoate [Alogliptin] 25 mg PO DAILY 03/24/21 Triamcinolone Acetonide 0.1% [Triamcinolone Acetonide] 1 applic TP DAILY 03/24/21 hydroCHLOROthiazide [Hydrodiuril] 12.5 mg PO DAILY 03/24/21 Varenicline Tartrate 1 mg PO BID 04/08/23 Allergies/Adverse Reactions: Allergies Allergy/AdvReac Type Severity Reaction Status Date / Time No Known Drug Allergies Allergy Verified 04/07/23 13:41 Anes History & Medical History - Anesthetic History Anesthesia Complications: reports: No previous complications - Medical History Cardiovascular: reports: Hypertension, High cholesterol, Coronary artery disease Pulmonary: reports: COPD Gastrointestinal: reports: Colon polyps Urinary: reports: Frequency Musculoskeletal: reports: None Endocrine/Autoimmune: reports: Type 2 diabetes Skin: reports: Psoriasis Smoking Status: Current every day smoker - Surgical History General: reports: Colonoscopy Cardiothoracic: reports: CABG Exam Dental: WNL, Partials Lower Mouth Opening: Greater than 4 Fingerbreadths Neck Mobility: Normal Mallampati classification: III Thyromental Distance: greater than 6 cm Respiratory: Lungs clear Cardiovascular: Regular rate, Normal S1, Normal S2 Plan Anesthesia Type: MAC Consent for Procedure(s) Verified and Reviewed: Yes Code Status: Attempt Resuscitation ASA classification: 3-Severe systemic disease Is this case an emergency?: No
[2023-04-08] MEDS: BRIMONIDINE 0.2% OPHTH DROPS 5 ML OPTH ONE (07:42)
[2023-04-08] MEDS: TIMOLOL 0.5% OPHTH DROPS OPTH ONE (07:42)
[2023-04-08] MEDS: EPINEPHrine 1 MG/ML AMP IR ONE (07:42)
[2023-04-08] MEDS ORDERED: LIDOCAINE-PF 2% 10 ML AMP SUBQ ONE (07:43)
[2023-04-08] MEDS: BSS/LIDOCAINE/EPINEPHRINE 1 ML SYRINGE IO ONE (07:44)
[2023-04-08] MEDS: TRIAMCIN/MOXIFLOX OPHTHALMIC 0.6 ML VIAL IO ONE (07:45)
[2023-04-08] MEDS: VANCOMYCIN OPHTH (TOPICAL) 10 MG/ML SYRINGE TOP ONE (07:46)
[2023-04-08] MEDS: PROPARACAINE 0.5% OPHTH DROPS 15 ML EACHEYE ONE (07:46)
[2023-04-08] MEDS: LACTATED RINGERS 500 ML IV ONE ×2 (08:02→08:38)
[2023-04-08 08:15] VITALS: BP 133/75; O2SAT 96
--- NOTE | 2023-04-08 08:17 | OPERATIVE REPORT ---
Operative Report - Other Other Information/Narrative: Date of Surgery: 04/08/23 Preop Dx: Visually significant cataract left eye. This was the first cataract surgery. Postop Dx: Same Procedure: Phacoemulsification with posterior chamber toric intraocular lens implant left eye Surgeon: Dr. Ezio David Anesthesia: Monitored anesthesia care Complications: None Operative Indications: This is a 77-year-old M with progressive vision loss in the left eye due to 3+ nuclear sclerotic and 2-3+ cortical cataract. Best c orrected visual acuity was 20/30 with glare to 20/150 vision in the left eye. Indications for surgery were: - Overall decrease in vision - Difficulty reading - Difficulty seeing street signs - Difficulty driving in low light or at night - Difficulty driving at night because of headlights from other vehicles - Difficulty with glare or bright lights in any situation The patient was consented at length concerning the risks and benefits of cataract surgery after which the patient expressed a desire to proceed with surgery. Operative Procedure: The patients cornea was marked in the pre-surgical area to indicate the axis for the toric intraocular lens. The patient was taken into OR#3 and placed under monitored anesthesia care. A surgical time-out was conducted confirming correct patient, correct procedure, and correct surgical site. The patient was given topical anesthesia and then prepped and draped in the usual sterile fashion. The eye was entered at the 6 and 3 oclock positions. Intracameral Shugarcaine was injected into the anterior chamber followed by a dispersive viscoelastic. A continuous-tear curvilinear capsulorhexis was performed. The nucleus was hydrodissected and phacoemulsified. The cortex was evacuated using automated infusion and aspiration. A cohesive viscoelastic was injected into the capsular bag and a 18.5 diopter toric intraocular lens was inserted into the bag and rotated to axis 155. Pushing the IOL against the sub-wound iris to free up the haptics (which were stuck together) caused the iris to bleed. Infusion and aspiration were used to evacuate the viscoelastic materials from the eye and the IOL was verified to remain on axis. The wounds were hydrated and the eye inflated to physiologic pressure using balanced salt solution. Approximately 0.25ml of a mixture of triamcinolone and moxifloxacin was injected trans-sclerally into the vitreous in the inferotemporal quadrant using a 30 gauge cannula. An additional 0.25ml of a mixture of triamcinolone and moxifloxacin was injected subconjunctivally in the superior quadrant for infection and inflammation prophylaxis. Wound integrity was checked with Weck-Sylvia sponges and the IOL axis was once again verified to be on the correct axis. The patient was taken from the operating room in good condition and given post-op instructions.
--- NOTE | 2023-04-08 10:01 | ANESTHESIA POST OP EVALUATION ---
Anesthesia Post Eval - Post Anesthesia Eval Vitals: Last Vital Signs Temp 37 C 04/08/23 08:02 Pulse 63 04/08/23 08:10 Resp 18 04/08/23 08:10 BP 133/75 H 04/08/23 08:10 Pulse Ox 96 04/08/23 08:10 O2 Flow Rate CV Function Including HR & BP: Stable Pain Control: Satisfactory Nausea & Vomiting: Negative Mental Status: Baseline Respiratory Status: Airway Patent Hydration Status: Satisfactory Anesthesia Complications: None
== END 2023-04-08 06:10 | disposition home or self-care (01) ==
LOC: SDS 06:09
PROVIDERS: ATTEND Ophthalmology
DX: H25.812 Combined forms of age-related cataract, left eye (principal); E11.9 Type 2 diabetes mellitus without complications; I10 Essential (primary) hypertension; J43.9 Emphysema, unspecified; I25.10 Atherosclerotic heart disease of native coronary artery without angina pectoris; E78.00 Pure hypercholesterolemia, unspecified; Z79.4 Long term (current) use of insulin; Z79.84 Long term (current) use of oral hypoglycemic drugs
CPT/HCPCS: 66984; A9270; J3490; J7120; V2632; V2787

== ENCOUNTER 2023-06-03 06:13 | Day surgery (SDC) | payer MEDICARE, OTHER ==
[2023-06-03] MEDS: LACTATED RINGERS 1,000 ML IV ONE ×3 (06:24→08:12)
[2023-06-03] MEDS: KETOROLAC 0.45% OPHTH DROPS ONE (06:50)
[2023-06-03] MEDS: PHENYLEPHRINE 2.5% OPHTH 2 ML DROPS ONE (06:51)
[2023-06-03] MEDS: PROPARACAINE 0.5% OPHTH DROPS 15 ML ONE (06:51)
[2023-06-03] MEDS ORDERED: TIMOLOL 0.5% OPHTH DROPS ONE (06:55)
[2023-06-03] MEDS ORDERED: BRIMONIDINE 0.2% OPHTH DROPS 5 ML ONE (06:55)
[2023-06-03] MEDS ORDERED: EPINEPHrine 1 MG/ML AMP ONE (06:55)
[2023-06-03] MEDS ORDERED: BSS/LIDOCAINE/EPINEPHRINE 1 ML VIAL ONE (06:55)
[2023-06-03] MEDS ORDERED: TRIAMCIN/MOXIFLOX OPHTHALMIC 0.6 ML VIAL IO ONE (06:55)
[2023-06-03] MEDS ORDERED: ACETYLCHOLINE 20 MG/2 ML KIT IO ONE (06:56)
[2023-06-03] MEDS: BRIMONIDINE 0.2% OPHTH DROPS 5 ML OPTH ONE (07:08)
[2023-06-03] MEDS: EPINEPHrine 1 MG/ML AMP IR ONE (07:09)
[2023-06-03] MEDS: TIMOLOL 0.5% OPHTH DROPS OPTH ONE (07:09)
[2023-06-03] MEDS: BSS/LIDOCAINE/EPINEPHRINE 1 ML SYRINGE IO ONE (07:09)
[2023-06-03] MEDS: TRIAMCIN/MOXIFLOX OPHTHALMIC 0.6 ML VIAL IO ONE (07:10)
[2023-06-03] MEDS: VANCOMYCIN OPHTH (TOPICAL) 10 MG/ML SYRINGE TOP ONE (07:10)
[2023-06-03] MEDS: PROPARACAINE 0.5% OPHTH DROPS 15 ML EACHEYE ONE (07:10)
--- NOTE | 2023-06-03 07:21 | ANESTHESIA ---
Pre-Anesthesia VS, & Labs - Diagnosis right cataract extraction with IOL - Procedure right cataract extraction with IOL Vital Signs: Temp Pulse Resp BP Pulse Ox O2 Flow Rate 36.0 C L 58 L 16 126/64 99 06/03/23 06:35 06/03/23 06:35 06/03/23 06:35 06/03/23 06:35 06/03/23 06:35 Height: 5 ft 6 in Weight (kg): 81.6 kg Body Mass Index: 29.0 BMI Classification: Overweight - NPO >8 hours - Lab Results Current Lab Results: Laboratory Tests 06/03/23 06:42: POC Whole Bld Glucose 110 H Home Medications and Allergies Ascorbic Acid [Vitamin C] 500 mg PO DAILY 01/24/16 Aspirin [Aspirin EC] 81 mg PO DAILY 01/24/16 Atorvastatin Calcium [Lipitor] 80 mg PO QPM 01/24/16 Cholecalciferol (Vitamin D3) [Vitamin D3] 2,000 unit PO DAILY 01/24/16 Insulin Glargine,Hum.rec.anlog [Lantus Solostar] 25 unit SQ QPM 01/24/16 Metformin HCl 1,000 mg PO DAILY 01/24/16 Metoprolol Tartrate 25 mg PO BID 01/24/16 Multivitamin [Multivitamins] 1 each PO DAILY 01/24/16 lisinopriL [Lisinopril] 10 mg PO DAILY 01/24/16 Alogliptin Benzoate [Alogliptin] 25 mg PO DAILY 03/24/21 Triamcinolone Acetonide 0.1% [Triamcinolone Acetonide] 1 applic TP DAILY 03/24/21 hydroCHLOROthiazide [Hydrodiuril] 12.5 mg PO DAILY 03/24/21 Varenicline Tartrate 1 mg PO BID 04/08/23 Allergies/Adverse Reactions: Allergies Allergy/AdvReac Type Severity Reaction Status Date / Time No Known Drug Allergies Allergy Verified 04/07/23 13:41 Anes History & Medical History - Anesthetic History Anesthesia Complications: reports: No previous complications - Medical History Cardiovascular: reports: Hypertension, High cholesterol, Coronary artery disease Pulmonary: reports: COPD Gastrointestinal: reports: Colon polyps Urinary: reports: Frequency Musculoskeletal: reports: None Endocrine/Autoimmune: reports: Type 2 diabetes Skin: reports: Psoriasis Smoking Status: Current every day smoker - Surgical History General: reports: Colonoscopy Eyes Ears Nose Throat (EENT): reports: Cataracts Cardiothoracic: reports: CABG Exam General: Alert, Oriented x3 Dental: WNL Mouth Opening: Greater than 4 Fingerbreadths Neck Mobility: Normal Mallampati classification: III Thyromental Distance: greater than 6 cm Respiratory: Lungs clear Cardiovascular: Regular rate Plan Anesthesia Type: MAC Consent for Procedure(s) Verified and Reviewed: Yes Code Status: Attempt Resuscitation ASA classification: 3-Severe systemic disease Is this case an emergency?: No
[2023-06-03] MEDS ORDERED: fentaNYL 100 MCG/2 ML VIAL ONE (07:25)
[2023-06-03] MEDS ORDERED: MIDAZOLAM 2 MG/2 ML VIAL ONE (07:25)
--- NOTE | 2023-06-03 07:55 | OPERATIVE REPORT ---
Operative Report - Other Other Information/Narrative: Date of Surgery: 06/03/23 Preop Dx: Visually significant cataract right eye. Cataract surgery was performed in the left eye on . Postop Dx: Same Procedure: Phacoemulsification with posterior chamber toric intraocular lens implant right eye Surgeon: Dr. Ezio David Anesthesia: Monitored anesthesia care Complications: None Operative Indications: This is a 77-year-old M with progressive vision loss in the right eye due to 2-3+ nuclear sclerotic and 2+ cortical cataract. Best corrected visual acuity was 20/25 with glare to 20/60 vision in the right eye. Indications for surgery were: - Overall decrease in vision - Difficulty seeing words on a computer screen - Difficulty reading - Difficulty seeing words, closed captions, or game scores on TV - Difficulty seeing street signs - Difficulty driving in low light or at night - Difficulty driving at night because of headlights from other vehicles - Difficulty with glare or bright lights in any situation The patient was consented at length concerning the risks and benefits of cataract surgery after which the patient expressed a desire to proceed with surgery. Operative Procedure: The patients cornea was marked in the pre-surgical area to indicate the axis for the toric intraocular lens. The patient was taken into OR#3 and placed under monitored anesthesia care. A surgical time-out was conducted confirming correct patient, correct procedure, and correct surgical site. The patient was given topical anesthesia and then prepped and draped in the usual sterile fashion. The eye was entered at the 6 and 3 oclock positions. Intracameral Shugarcaine was injected into the anterior chamber foll owed by a dispersive viscoelastic. A continuous-tear curvilinear capsulorhexis was performed. The nucleus was hydrodissected and phacoemulsified. The cortex was evacuated using automated infusion and aspiration. A cohesive viscoelastic was injected into the capsular bag and a 18.5 diopter toric intraocular lens was inserted into the bag and rotated to axis 011. Infusion and aspiration were used to evacuate the viscoelastic materials from the eye and the IOL was verified to remain on axis. The wounds were hydrated and the eye inflated to physiologic pressure using balanced salt solution. Approximately 0.25ml of a mixture of triamcinolone and moxifloxacin was injected trans-sclerally into the vitreous in the inferotemporal quadrant using a 30 gauge cannula. An additional 0.25ml of a mixture of triamcinolone and moxifloxacin was injected subconjunctivally in the superior quadrant for infection and inflammation prophylaxis. Wound integrity was checked with Weck-Sylvia sponges and the IOL axis was once again verified to be on the correct axis. The patient was taken from the operating room in good condition and given post-op instructions.
[2023-06-03 08:07] VITALS: BP 112/56; O2SAT 97
--- NOTE | 2023-06-03 14:08 | ANESTHESIA POST OP EVALUATION ---
Anesthesia Post Eval - Post Anesthesia Eval Vitals: Last Vital Signs Temp 36.3 C L 06/03/23 08:03 Pulse 58 L 06/03/23 08:03 Resp 16 06/03/23 08:03 BP 112/56 L 06/03/23 08:03 Pulse Ox 97 06/03/23 08:03 O2 Flow Rate CV Function Including HR & BP: Stable Pain Control: Satisfactory Nausea & Vomiting: Negative Mental Status: Baseline Respiratory Status: Airway Patent Hydration Status: Satisfactory Anesthesia Complications: None
== END 2023-06-03 06:14 | disposition home or self-care (01) ==
LOC: SDS 06:13
PROVIDERS: ATTEND Ophthalmology
DX: E11.36 Type 2 diabetes mellitus with diabetic cataract (principal); H25.811 Combined forms of age-related cataract, right eye; F17.200 Nicotine dependence, unspecified, uncomplicated; I25.10 Atherosclerotic heart disease of native coronary artery without angina pectoris; J44.9 Chronic obstructive pulmonary disease, unspecified; I10 Essential (primary) hypertension; Z98.42 Cataract extraction status, left eye; Z79.4 Long term (current) use of insulin; Z79.84 Long term (current) use of oral hypoglycemic drugs
CPT/HCPCS: 66984; A9270; J3490; J7120; V2632

== ENCOUNTER 2023-11-18 08:12 | Outpatient (CLI) | payer MEDICARE, OTHER ==
[2023-11-18 08:27] LABS: BASOPHILS # (AUTO) 0.1 10^3/uL (0.0-0.1); BASOPHILS % (AUTO) 0.6 %; EOSINOPHILS # (AUTO) 0.5 10^3/uL (0.0-0.7); EOSINOPHILS % (AUTO) 5.8 %; HCT - HEMATOCRIT 39.5 % (42.0-52.0); HGB - HEMOGLOBIN 13.1 g/dL (14.0-18.0); LYMPHOCYTES # (AUTO) 2.1 10^3/uL (1.5-3.5); LYMPHOCYTES % (AUTO) 24.5 %; MEAN CORPUSCULAR HEMOGLOBIN 31.3 pg (27.0-31.0); MEAN CORPUSCULAR HGB CONC 33.2 g/dL (32.0-36.0); MEAN CORPUSCULAR VOLUME 94.5 fL (80.0-94.0); MEAN PLATELET VOLUME 9.6 fL (7.4-11.4); MONOCYTES # (AUTO) 0.9 10^3/uL (0.0-1.0); MONOCYTES % (AUTO) 10.5 %; NEUTROPHILS % (AUTO) 58.1 %; PLT - PLATELET COUNT 242 10^3/uL (130-450); RED BLOOD COUNT 4.18 10^6/uL (4.70-6.10); RED CELL DISTRIBUTION WIDTH 12.7 % (12.0-15.0); WHITE BLOOD COUNT 8.6 x10^3/uL (4.8-10.8)
[2023-11-18 08:50] LABS: ALBUMIN 4.2 g/dL (3.2-5.5); ALBUMIN/GLOBULIN RATIO 1.8 (1.0-2.2); ALKALINE PHOSPHATASE 72 IU/L (42-121); ALT ALANINE AMINOTRANSFERASE 16 IU/L (10-60); AST ASPARTATE AMINOTRANSFERASE 21 IU/L (10-42); BILIRUBIN,TOTAL 0.4 mg/dL (0.2-1.0); BUN - BLOOD UREA NITROGEN 52 mg/dL (6-20); CALCIUM 9.7 mg/dL (8.5-10.3); CARBON DIOXIDE - CO2 28 mmol/L (21-32); CHLORIDE 106 mmol/L (101-111); CHOLESTEROL 95 mg/dL; CREATININE 1.7 mg/dL (0.6-1.3); GFR - MDRD 39 (>89); GLUCOSE 99 mg/dL (74-104); HDL CHOLESTEROL 32 mg/dL; LDL CHOLESTEROL,CALCULATED 44 mg/dL; LDL/HDL RATIO 1.4 (<3.6); POTASSIUM 4.4 mmol/L (3.5-4.5); SODIUM 139 mmol/L (135-145); TOTAL PROTEIN 6.5 g/dL (6.4-8.9); TRIGLYCERIDES 96 mg/dL; VLDL CHOLESTEROL 19 mg/dL
[2023-11-18 08:51] LABS: CREATININE,URINE 69.7 mg/dL; MICROALBUM/CREATININE RATIO,UR 424.7 ug/mg (<30.0); MICROALBUMIN,URINE 29.6 mg/dL
[2023-11-18 10:24] LABS: ESTIMATED AVERAGE GLUCOSE 151 mg/dL (70-100); HEMOGLOBIN A1c% 6.9 % (4.27-6.07)
== END 2023-11-18 08:13 | disposition home or self-care (01) ==
LOC: LAB 08:12
PROVIDERS: ATTEND Family Medicine
DX: I10 Essential (primary) hypertension (principal); E78.5 Hyperlipidemia, unspecified; E11.59 Type 2 diabetes mellitus with other circulatory complications
CPT/HCPCS: 36415; 80053; 80061; 82043; 82570; 83036; 83721; 85025